=== PATIENT | female | born 1975 | race Two or more races ===

== ENCOUNTER 2022-06-23 08:20 | Outpatient (CLI) | payer OTHER | END 2022-06-23 08:28 | disposition home or self-care (01) | LOC: SONOGRAMA 08:20 | PROVIDERS: ATTEND Pathology Anatomic Pathology & Clinical Pathology | DX: E04.1 Nontoxic single thyroid nodule (principal); D44.0 Neoplasm of uncertain behavior of thyroid gland ==

== ENCOUNTER 2022-09-19 08:40 | Outpatient (CLI) | payer OTHER | END 2022-09-19 08:43 | disposition home or self-care (01) | LOC: SONOGRAMA 08:40 | PROVIDERS: ATTEND Pathology Anatomic Pathology & Clinical Pathology | DX: D34 Benign neoplasm of thyroid gland (principal); E04.9 Nontoxic goiter, unspecified; E04.1 Nontoxic single thyroid nodule ==